=== PATIENT | female | born 1995 ===

== ENCOUNTER 2018-04-02 17:16 | Emergency (ER) | payer OTHER ==
[2018-04-02 17:17] VITALS: BMI 24.7
[2018-04-02 17:30] VITALS: BP 114/68; PULSE 82; TEMP 98.2; O2SAT 100
--- NOTE | 2018-04-02 17:43 | C.PDOC ---
History Of Present Illness 22 year old female with PMHx of eczema presents to the ED complaining of eczema flare up and itching rash to face and eyelids that started 2 days ago. Also reports she started a new cleanse and is taking unknown tablets daily. Denies any shortness of breath, difficulty swallowing, cough, throat pain, fever, or chills. Time Seen by Provider: 04/02/18 17:31 Chief Complaint (Nursing): Eye Problem History Per: Patient History/Exam Limitations: no limitations Onset/Duration Of Symptoms: Days (2) Current Symptoms Are (Timing): Still Present Location Of Injury: Anterior: Arm (rash), Face (rash) Quality Of Symptoms: Itching Past Medical History Reviewed: Historical Data, Nursing Documentation, Vital Signs Vital Signs: Last Vital Signs Temp 98.2 F 04/02/18 17:26 Pulse 82 04/02/18 17:26 Resp 20 04/02/18 17:26 BP 114/68 04/02/18 17:26 Pulse Ox 100 04/02/18 17:26 - Medical History PMH: Denies: Chronic Kidney Disease Other PMH: eczema Surgical History: No Surg Hx Family History: States: No Known Family Hx - Social History Hx Alcohol Use: No Hx Substance Use: No - Immunization History Hx Tetanus Toxoid Vaccination: Yes Hx Influenza Vaccination: No Hx Pneumococcal Vaccination: No Review Of Systems Constitutional: Negative for: Fever, Chills ENT: Negative for: Ear Pain, Throat Pain Respiratory: Negative for: Cough, Shortness of Breath Skin: Positive for: Rash (face, back, eyelids ) Physical Exam - Physical Exam Appears: Non-toxic, No Acute Distress Skin: Warm, Dry, Other (dry scaly patches to bilateral antecubital fossa and back. bright macular erythema to edges of face. ) Head: Atraumatic, Normacephalic Eye(s): bilateral: PERRL, EOMI, Eyelid Inflammation Ear(s): Bilateral: Normal Nose: Normal Oral Mucosa: Moist Throat: Normal, No Erythema, No Exudate Neck: Supple Chest: Symmetrical Cardiovascular: Rhythm Regular Respiratory: Normal Breath Sounds, No Rales, No Rhonchi, No Wheezing Extremity: Bilateral: Atraumatic, Normal Color And Temperature, Normal ROM Neurological/Psych: Oriented x3, Normal Speech Gait: Steady ED Course And Treatment O2 Sat by Pulse Oximetry: 100 (RA) Pulse Ox Interpretation: Normal Medical Decision Making Medical Decision Making: Plan - Benadryl 50mg PO - Pepcid 20mg PO - Prednisone 40mg PO Patient with eczema and rash to face. No signs of cellulitis. Will treat with antihistamine and steroid. Recommend follow up with material controller Disposition Counseled Patient/Family Regarding: Diagnosis, Need For Followup, Rx Given - Disposition Referrals: Tremayne Fay MD [Staff Provider] - Beau Walter MD [Staff Provider] - Disposition: HOME/ ROUTINE Disposition Time: 17:38 Condition: GOOD Additional Instructions: Apply Tridesilon cream to eyelids and face as needed Cortisone can be applied to arms and body as needed Prescriptions: Desonide [Tridesilon] 60 gm TP BID #1 cream..g. DiphenhydrAMINE [Benadryl] 25 mg PO Q4 PRN #30 cap PRN Reason: Rash Hydrocortisone 2.5% 2.5 gm TP BID #1 oin Instructions: Eczema (Atopic Dermatitis) (DC) Forms: [employer] (Italian) - POA Present On Arrival: None - Clinical Impression Clinical Impression: Eczema, Allergic dermatitis - PA / JOB SUPERINTENDENT / Resident Statement MD/DO has reviewed & agrees with the documentation as recorded. - Scribe Statement The provider has reviewed the documentation as recorded by the Scribcheryl Garcia All medical record entries made by the Denveribcheryl were at my direction and personally dictated by me. I have reviewed the chart and agree that the record accurately reflects my personal performance of the history, physical exam, medical decision making, and the department course for this patient. I have also personally directed, reviewed, and agree with the discharge instructions and disposition.
[2018-04-02 17:49] VITALS: RESP 18
== END 2018-04-02 17:48 | disposition home or self-care (01) ==
LOC: C.ER 17:16
DX: L23.9 Allergic contact dermatitis, unspecified cause (principal)